=== PATIENT | female | born 1985 | race Caucasian/White ===

== ENCOUNTER 2017-05-06 17:32 | Emergency (ER) | payer SELFPAY ==
[~2017-05-06] VITALS: Ht 162.6 cm; Wt 100.0 kg
[~2017-05-06 17:32] MED LIST: AMOXICILLIN 50500 MG PO; BACTRIM DS 8001 TAB PO; CEPHALEXIN500 M1 PO; DHA PO; LORTAB 5/500 501 TAB PO; MACROBID 1100 MG/CAP PO; MOTRIN 800800 MG/TAB PO; NO HOME MEDICATIONS; NORCO 325 MG-51 TAB PO; PERCOCET 325 MG1 TA2 PO; PREDNISONE20 MG PO; PRENATAL VITAMI1 TA5 PO; PRENATAL1 TA1 PO; PRENATAL1 TA7 PO; TUSS PO; TYLENOL #3 301 UDTAB PO; VICODIN 5/5001 UDTAB PO; ZITHROMAX 250M250 MG PO; ZITHROMAX Z PA250 MG PO
[2017-05-06 17:36] VITALS: BP 102/67; TEMP 98.5
[2017-05-06 18:43] VITALS: PULSE 83
== END 2017-05-06 18:44 | disposition home or self-care (01) ==
LOC: COL.ER 17:32
DX: S05.01XA Injury of conjunctiva and corneal abrasion without foreign body, right eye, initial encounter (principal); F17.210 Nicotine dependence, cigarettes, uncomplicated; X58.XXXA Exposure to other specified factors, initial encounter